=== PATIENT | female | born 1995 | race American Indian/Alaskan Native ===

== ENCOUNTER 2017-03-21 18:17 | Emergency (ER) | payer MEDICAID ==
[2017-03-21 18:33] VITALS: BP 119/74; PULSE 91; TEMP 99; O2SAT 99
--- NOTE | 2017-03-21 19:33 | ED PDOC ---
Arrival/HPI - General Chief Complaint: Abdominal Pain Time Seen by Provider: 03/21/17 18:56 Historian: Patient - History of Present Illness Narrative History of Present Illness (Text): 03/21/17 19:25 A 21 year old female, who is approximately 10 weeks based on last menstrual period, presents to the emergency department complaining of green vaginal discharge since yesterday. Patient notes vaginal spotting, however on further questioning, patient reports she noted 1 episode of spotting only when wiping after using the bathroom, since then has had no spotting or vaginal bleeding. Patient also denies any fever, chills, nausea, vomiting, abdominal pain, urinary symptoms or any other complaints. Patient was last seen by her ob- family services assistant on 02/13 for a positive test and regular physical exam. Patient has not had an ultrasound done since and has not continued with any care. Time/Duration: Other (Yesterday) Symptom Course: Unchanged Quality: Other Context: Home Past Medical History - Provider Review Nursing Documentation Reviewed: Yes - Psychiatric Hx Substance Use: No - Surgical History Hx Eye Surgery: Yes Family/Social History - Physician Review Nursing Documentation Reviewed: Yes Family/Social History: No Known Family HX Smoking Status: Never Smoked Hx Alcohol Use: No Hx Substance Use: No Allergies/Home Meds Allergies/Adverse Reactions: Allergies No Known Allergies Allergy (Verified 03/21/17 18:33) Home Medications: Home Meds Medication Instructions Recorded Confirmed No Known Home Med 03/21/17 03/21/17 Review of Systems - Physician Review All systems were reviewed & negative as marked: Yes - Review of Systems Constitutional: absent: Fevers, Night Sweats Gastrointestinal: absent: Abdominal Pain, Nausea, Vomiting Genitourinary Female: Vaginal Discharge (Green vaginal discharge). absent: Dysuria, Frequency, Hematuria, Urine Output Changes, Vaginal Bleeding Physical Exam Vital Signs Reviewed: Yes Vital Signs Temp Pulse Resp BP Pulse Ox 03/21/17 20:21 18 99 03/21/17 18:30 99 F 91 H 16 119/74 99 Temperature: Afebrile Blood Pressure: Normal Pulse: Tachycardic Respiratory Rate: Normal Appearance: Positive for: Well-Appearing, Non-Toxic, Comfortable Pain Distress: None Mental Status: Positive for: Alert and Oriented X 3 - Systems Exam Head: Present: Atraumatic, Normocephalic Pupils: Present: PERRL Extroacular Muscles: Present: EOMI Conjunctiva: Present: Normal Mouth: Present: Moist Mucous Membranes Neck: Present: Normal Range of Motion Respiratory/Chest: Present: Clear to Auscultation, Good Air Exchange. No: Respiratory Distress, Accessory Muscle Use Cardiovascular: Present: Regular Rate and Rhythm, Normal S1, S2. No: Murmurs Abdomen: Present: Normal Bowel Sounds. No: Tenderness, Distention, Peritoneal Signs Genitourinary/Pelvic Exam: Present: Normal External Genitalia, Vaginal Discharge (+yellow d/c), Cervical os Closed, Other (female EMT Bethanie, was present during the entire exam). No: Vaginal Bleeding, Vaginal Lesions, Adenexal Tenderness, Adenexal Mass, Cervical Motion Tendernes, Odor Back: Present: Normal Inspection Upper Extremity: Present: Normal Inspection. No: Cyanosis, Edema Lower Extremity: Present: Normal Inspection. No: Edema Neurological: Present: GCS=15, CN II-XII Intact, Speech Normal Skin: Present: Warm, Dry, Normal Color. No: Rashes Psychiatric: Present: Alert, Oriented x 3, Normal Insight, Normal Concentration Medical Decision Making ED Course and Treatment: 03/21/17 19:25 Impression: A 21 year old female approximately 10 weeks with green vaginal discharge. Differential diagnosis : cervicitis, bacterial vaginosis, PID Plan: -- Rocephin IM 250 mg -- Zithromax 1 g PO -- GC cx sent -- Reassess and disposition Progress Notes: Patient advised to start taking [id number] vitamins and to follow up with her DIGITAL ASSET MANAGER doctor. Instructed to return to the emergency room at any time for any new or worsening symptoms. Patient states she fully agrees with and understands discharge instructions. States that she agrees with the plan and disposition. Verbalized and repeated discharge instructions and plan. I have given the patient opportunity to ask any additional questions. - Medication Orders Current Medication Orders: Discontinued Medications Azithromycin (Zithromax) 1,000 mg PO STAT STA PRN Reason: Protocol Stop: 03/21/17 19:49 Last Admin: 03/21/17 20:20 Dose: 1,000 mg Ceftriaxone Sodium (Rocephin) 250 mg IM STAT STA PRN Reason: Protocol Stop: 03/21/17 19:49 Last Admin: 03/21/17 20:20 Dose: Not Given Non-Admin Reason: Patient Refused - PA / PHARMACIST'S AIDE / Resident Statement MD/DO has reviewed & agrees with the documentation as recorded. - Scribe Statement The provider has reviewed the documentation as recorded by the Libia Handley Provider Scribe Attestation: All medical record entries made by the Igoribe were at my direction and personally dictated by me. I have reviewed the chart and agree that the record accurately reflects my personal performance of the history, physical exam, medical decision making, and the department course for this patient. I have also personally directed, reviewed, and agree with the discharge instructions and disposition. Disposition/Present on Arrival - Present on Arrival Any Indicators Present on Arrival: No History of DVT/PE: No History of Uncontrolled Diabetes: No Urinary Catheter: No History of Decub. Ulcer: No History Surgical Site Infection Following: None - Disposition Have Diagnosis and Disposition been Completed?: Yes Diagnosis: Cervicitis Disposition: HOME/ ROUTINE Disposition Time: 19:45 Patient Plan: Discharge Condition: STABLE Discharge Instructions (ExitCare): Cervicitis (ED) Print Language: JAMAICAN Additional Instructions: Thank you for letting us take care of you today. You were treated for cervicitis. The emergency medical care you received today was directed at your acute symptoms. Return to the Emergency Department if your symptoms worsen, do not improve, or if you have any other problems. Please contact your DIGITAL ASSET MANAGER doctor in 2 days for re-evaluation and follow up. Bring any paperwork you were given at discharge with you along with any medications you are taking to your follow up visit. Our treatment cannot replace ongoing medical care by a primary care provider (PCP) outside of the emergency department. Thank you for allowing the [facility] team to be part of your care today. Referrals: PCP,NO [Primary Care Provider] - Follow up with primary Forms: [facility] (Luxembourgish), WORK NOTE
[2017-03-21] MEDS ORDERED: cefTRIAXone (Rocephin) 250 mg Inj IM STA (19:48)
[2017-03-21 20:22] VITALS: RESP 18
== END 2017-03-21 20:21 | disposition home or self-care (01) ==
LOC: ED 18:17 → MERGE 18:17 → ED 20:21
DX: O23.511 Infections of cervix in pregnancy, first trimester (principal); Z3A.10 10 weeks gestation of pregnancy

== ENCOUNTER 2017-04-09 20:01 | Emergency (ER) | payer MEDICAID ==
[2017-04-09 20:12] VITALS: PULSE 92; TEMP 97.5
[2017-04-09] MEDS ORDERED: Acetaminophen 650mg/20.3ml solution UD PO STA (21:18)
[2017-04-09] MEDS ORDERED: Sodium Chloride 0.9% 500 ML IV STA (21:26)
--- NOTE | 2017-04-09 21:32 | ED PDOC ---
Arrival/HPI - General Historian: Patient - History of Present Illness Time/Duration: 4-6 hours Symptom Onset: Sudden Symptom Course: Unchanged Quality: Cramping Severity Level: 8 Activities at Onset: Rest Context: Sitting <Carlos Cochran - Last Filed: 04/10/17 04:10> <Armond Chanel - Last Filed: 04/12/17 10:07> - General Chief Complaint: Abdominal Pain Time Seen by Provider: 04/09/17 21:00 - History of Present Illness Narrative History of Present Illness (Text): 04/09/17 21:28 This is a 21 yr. old female with no significant past medical history who comes into [facility] complaining of diffuse stomach pain for one day. The patient reports the pain starting earlier this morning while at home. She describes the pain as cramping in nature. She reports the pain beginning in the right lower quadrant and left lower quadrant and radiating throughout the remainder of the abdomen. She denies any alleviating or modifying factors. She reports chills and one episode of non-bloody vomit. She denies any chest pain, shortness of breath, fever, chills, vaginal discharge, vaginal bleeding or any other complaints. (Carlos Cochran) Past Medical History - Provider Review Nursing Documentation Reviewed: Yes - Psychiatric Hx Substance Use: No - Surgical History Hx Eye Surgery: Yes <Carlos Cochran - Last Filed: 04/10/17 04:10> Family/Social History Family/Social History: No Known Family HX Smoking Status: Never Smoked Hx Alcohol Use: No Hx Substance Use: No <Carlos Cochran - Last Filed: 04/10/17 04:10> Allergies/Home Meds <Carlos Cochran - Last Filed: 04/10/17 04:10> <Armond Chanel - Last Filed: 04/12/17 10:07> Allergies/Adverse Reactions: Allergies No Known Allergies Allergy (Verified 04/09/17 20:11) Home Medications: Home Meds Medication Instructions Recorded Confirmed No Known Home Med 03/21/17 04/09/17 Review of Systems - Physician Review All systems were reviewed & negative as marked: Yes - Review of Systems Constitutional: Normal. absent: Fevers, Night Sweats Eyes: Normal. absent: Vision Changes, Eye Pain ENT: Normal. absent: Sore Throat, Sinus Congestion Respiratory: Normal. absent: Cough, Sputum, Wheezing Cardiovascular: Normal. absent: Chest Pain, Palpitations, Syncope Gastrointestinal: Abdominal Pain (Rlq and llq that radiates to the remainder of the abdomen.), Nausea, Vomiting (one episode of non bloody emesis). absent: Constipation, Diarrhea, Hematochezia Genitourinary Female: Normal. absent: Frequency, Hematuria, Vaginal Bleeding, Vaginal Discharge Musculoskeletal: Normal. absent: Back Pain Skin: Normal. absent: Rash, Skin Lesions, Abscess Neurological: Normal. absent: Headache, Dizziness Endocrine: Normal. absent: Polyuria, Polydipsia Hemo/Lymphatic: Normal. absent: Easy Bruising Psychiatric: Normal <Carlos Cochran - Last Filed: 04/10/17 04:10> Physical Exam Vital Signs Reviewed: Yes Temperature: Hypothermic Blood Pressure: Normal Pulse: Tachycardic Respiratory Rate: Normal Appearance: Positive for: Non-Toxic, Uncomfortable Pain Distress: Severe Mental Status: Positive for: Alert and Oriented X 3 - Systems Exam Head: Present: Atraumatic, Normocephalic Pupils: Present: PERRL. No: Sluggish Extroacular Muscles: Present: EOMI Conjunctiva: Present: Normal Mouth: Present: Moist Mucous Membranes, Normal Tounge Neck: Present: Normal Range of Motion. No: JVD, Lymphadenopathy Respiratory/Chest: Present: Clear to Auscultation, Good Air Exchange. No: Respiratory Distress, Accessory Muscle Use, Wheezes Cardiovascular: Present: Regular Rate and Rhythm, Normal S1, S2. No: Murmurs, Tachycardic, Bradycardic Abdomen: Present: Tenderness (upon palpation diffusely tender throughout all four quadrants). No: Distention, Peritoneal Signs, Guarding Upper Extremity: Present: Normal Inspection. No: Cyanosis, Edema Lower Extremity: Present: Normal Inspection. No: Edema Neurological: Present: CN II-XII Intact, Speech Normal Skin: Present: Dry, Normal Color. No: Warm, Rashes Psychiatric: Present: Alert, Oriented x 3, Normal Insight <Carlos Cochran - Last Filed: 04/10/17 04:10> Medical Decision Making <Carlos Cochran - Last Filed: 04/10/17 04:10> <Armond Chanel Last Filed: 04/12/17 10:07> ED Course and Treatment: 04/09/17 21:42 Patient came into [facility] complaining of diffuse stomach pain for one day. I ordered cbc w/diff, cmp, and pelvic ultrasound. The patient was given fluids and acetaminophen for the pain. The patient will be re -evaluated after lab results return. Patient currently refusing blood work due to her being unable to sit still from the pain. Will re-evaluate pain level after in 30 minutes. 04/09/17 22:08 Patient reports feeling better after Tylenol being administered. 04/09/17 23:27 Lab work shoed K at 3.5. Gave 20mEq KCL PO. 04/10/17 00:50 Transvaginal u/s results: showed single live intrauterine gestation. 04/10/17 01:40 Patient refusing Pelvic exam at this time. 04/10/17 01:48 U/A Lab results: Urine Protein :30, Urine Urobilinogen, Urine RBC: (0-2), Urine WBC:(1-3) 04/10/17 03:08 Patient still reporting abdominal discomfort. Patient given 1 PO Percocet. Patient will be re-evaluated after pain medicine given. 04/10/17 03:59 Patient reports a decrease in abdominal discomfort. Patient is to be discharged. (Carlos Cochran) Impression: Pt seen and evaluated with associate medical director. Pt, currently , presented for diffuse abdominal pain with 1 episode of vomiting. Aware and agree with HPI , clinical findings, plan, and management. Plan: -- US Transvaginal -- Labs -- Urinalysis -- IV fluids -- Tylenol -- Reassess and disposition (Armond Chanel) - Lab Interpretations Lab Results: 04/09/17 22:39 04/09/17 22:39 Lab Results 04/10/17 00:39: Urine Color Yellow, Urine Appearance Clear, Urine pH 6.5, Ur Specific [place] >= 1.030, Urine Protein 30 H, Urine Glucose (UA) Negative, Urine Ketones >=80, Urine Blood Negative, Urine Nitrate Negative, Urine Bilirubin Negative, Urine Urobilinogen 1.0 H, Ur Leukocyte Esterase Negative, Urine RBC 0 - 2, Urine WBC 1 - 3, Ur Epithelial Cells 3 - 4, Urine Bacteria Trace, Urine Other Mucus 04/09/17 22:39: Sodium 137, Potassium 3.5 L, Chloride 103, Carbon Dioxide 22, Anion Gap 16, BUN 8, Creatinine 0.5, Est GFR ( Amer) > 60, Est GFR (Non- Af Amer) > 60, Random Glucose 92, Calcium 9.4, Total Bilirubin 0.6, AST 21, ALT 25, Alkaline Phosphatase 47, Total Protein 7.5, Albumin 4.5, Globulin 3.0, Albumin/Globulin Ratio 1.5 04/09/17 22:39: WBC 5.9, RBC 3.99, Hgb 10.9 L, Hct 32.2 L, MCV 80.7, MCH 27.3, MCHC 33.9, RDW 15.6 H, Plt Count 189, MPV 9.9, Gran % 84.2 H, Lymph % (Auto) 12.6 L, Wheeler % (Auto) 2.7, Eos % (Auto) 0.3 L, Baso % (Auto) 0.2, Gran # 4.92, Lymph # 0.7 L, Wheeler # 0.2, Eos # 0.0, Baso # 0.01 - RAD Interpretation Radiology Orders: 04/09/17 21:14 AGE [US] Stat - Medication Orders Current Medication Orders: Discontinued Medications Acetaminophen (Tylenol 650mg/20.3ml Solution Ud) 975 mg PO STAT STA Stop: 04/09/17 21:19 Last Admin: 04/09/17 21:41 Dose: 975 mg Acetaminophen (Tylenol 325mg Tab) 325 mg PO ONCE ONE Stop: 04/10/17 03:16 Last Admin: 04/10/17 03:29 Dose: 325 mg Al Hydrox/Mg Hydrox/Simethicone (Maalox Plus 30 Ml) 30 ml PO STAT STA Stop: 04/10/17 01:53 Last Admin: 04/10/17 02:12 Dose: 30 ml Sodium Chloride (Sodium Chloride 0.9%) 500 mls @ 999 mls/hr IV .Q31M STA Stop: 04/09/17 21:56 Last Admin: 04/09/17 22:30 Dose: 999 mls/hr Oxycodone HCl (Oxycodone Immediate Release Tab) 2.5 mg PO ONCE ONE Stop: 04/10/17 03:16 Last Admin: 04/10/17 03:28 Dose: 2.5 mg Potassium Chloride (K-Dur 20 Meq Er Tab) 20 meq PO STAT STA Stop: 04/09/17 23:27 Last Admin: 04/09/17 23:36 Dose: 20 meq - PA / CHIEF LIBRARIAN [facility] OR DEPARTMENT / Resident Statement / has reviewed & agrees with the documentation as recorded. / has examined the patient and agrees with the treatment plan. <Armond Chanel - Last Filed: 04/12/17 10:07> Disposition/Present on Arrival - Present on Arrival Any Indicators Present on Arrival: No History of DVT/PE: No History of Uncontrolled Diabetes: No Urinary Catheter: No History of Decub. Ulcer: No History Surgical Site Infection Following: None - Disposition Have Diagnosis and Disposition been Completed?: Yes Disposition Time: 04:03 Patient Plan: Discharge <Carlos Cochran - Last Filed: 04/10/17 04:10> - Present on Arrival Any Indicators Present on Arrival: No - Disposition Have Diagnosis and Disposition been Completed?: Yes <Armond Chanel - Last Filed: 04/12/17 10:07> - Disposition Diagnosis: Abdominal pain during intrauterine Disposition: HOME/ ROUTINE Condition: GOOD Discharge Instructions (ExitCare): Abdominal Pain in (ED) Additional Instructions: Instructed patient to F/U with [facility] within one week. Instructed patient to F/U with PMD within one week. Instructed patient to return to [facility] if any new symptoms present or current symptoms worsen. Referrals: Jorge Cruz MD [Primary Care Provider] - Follow up with primary Forms: [facility] (Cuban), WORK NOTE
[2017-04-09 22:57] LABS: BASO # 0.01 K/mm3 (0.0-2.0); BASO % 0.2 % (0.0-3.0); EOS % 0.3 % (1.5-5.0); GRAN # 4.92 (1.4-6.5); GRAN % 84.2 % (50.0-68.0); HEMATOCRIT 32.2 % (36.0-48.0); LYMPH # 0.7 (1.2-3.4); LYMPH % 12.6 % (22.0-35.0); MEAN CELL VOLUME 80.7 fl (80.0-105.0); MEAN CORPUSCULAR HEMOGLOBIN 27.3 pg (25.0-35.0); MEAN CORPUSCULAR HGB CONC 33.9 g/dl (31.0-37.0); MEAN PLATELET VOLUME 9.9 fl (7.0-11.0); MONO # 0.2 (0.1-0.6); MONO % 2.7 % (1.0-6.0); RED CELL DISTRIBUTION WIDTH 15.6 % (11.5-14.5); WHITE BLOOD COUNT 5.9 10^3/ul (4.5-11.0)
[2017-04-09 22:59] LABS: ALB/GLOB RATIO 1.5 (1.1-1.8); ALKALINE PHOSPHATASE 47 U/L (38-133); ALT/SGPT 25 U/L (7-56); AST/SGOT 21 U/L (15-39); BILIRUBIN,TOTAL 0.6 mg/dL (0.2-1.3); BLOOD UREA NITROGEN 8 mg/dL (7-21); CALCIUM 9.4 mg/dL (8.4-10.5); CARBON DIOXIDE 22 mmol/L (21-33); CHLORIDE 103 mmol/L (98-107); GFR AFRICAN-AMERICAN > 60; GLUCOSE,RANDOM 92 mg/dL (70-110); POTASSIUM 3.5 mmol/L (3.6-5.0); SODIUM 137 mmol/L (132-148); TOTAL PROTEIN 7.5 g/dL (5.8-8.3)
[2017-04-09] MEDS ORDERED: Potassium Chloride 20 mEq ER Tab PO STA (23:26)
--- NOTE | 2017-04-10 00:34 | US ---
EXAM: US First Trimester, Transabdominal CLINICAL HISTORY: 21 years old, female; Pain; Other: Abd; Gestational age or lmp: 13wks; ; Additional info: Diffuse abominal pain TECHNIQUE: Real-time transabdominal obstetrical ultrasound of the maternal pelvis and a first trimester with image documentation. COMPARISON: No relevant prior studies available. FINDINGS: Gestation: Single live intrauterine gestation. heart rate of 144 beats per minute. Estimated gestational age of 13 weeks 5 days by measurements. Uterus/cervix: No subchorionic hemorrhage. No cervical dilatation or effacement. Ovaries: Not visualized. No adnexal masses. Free fluid: No significant free fluid. IMPRESSION: 1. Single live intrauterine gestation.
[2017-04-10 00:54] LABS: PH,URINE 6.5 (4.7-8.0); URINE BILIRUBIN NEGATIVE (NEGATIVE); URINE BLOOD NEGATIVE (NEGATIVE); URINE GLUCOSE (UA) NEGATIVE (NEGATIVE); URINE KETONE >=80 mg/dL (NEGATIVE); URINE LEUKOCYTE ESTERASE NEGATIVE Leu/uL (NEGATIVE); URINE PROTEIN 30 mg/dL (<30 mg/dL)
[2017-04-10 00:57] LABS: URINE APPEARANCE CLEAR (CLEAR); URINE COLOR YELLOW (YELLOW)
[2017-04-10 01:16] LABS: URINE BACTERIA TRACE (NEG); URINE RBC 0 - 2 /hpf (0-2)
[2017-04-10] MEDS ORDERED: Alum-Mag Hydrox-Simethicone Susp (30 mL) PO STA (01:52)
[2017-04-10] MEDS ORDERED: Oxycodone/Acetaminophen 2.5/325 mg Tab PO STA (03:01)
[2017-04-10] MEDS ORDERED: oxyCODONE 5 mg Immediate Release Tab PO ONE (03:15)
[2017-04-10 04:13] VITALS: BP 118/68; RESP 18; O2SAT 99
== END 2017-04-10 04:15 | disposition home or self-care (01) ==
LOC: ED 20:01
DX: O26.891 Other specified pregnancy related conditions, first trimester (principal); Z3A.13 13 weeks gestation of pregnancy
CPT/HCPCS: 76815; 80053; 81001; 85025; 99284; J7040